=== PATIENT | male | born 1975 | race Caucasian/White ===

== ENCOUNTER → 2017-05-28 | Outpatient (CLI) | payer OTHER | END | disposition home or self-care (01) | LOC: US 05-20 14:00 | DX: D17.79 Benign lipomatous neoplasm of other sites (principal); R22.31 Localized swelling, mass and lump, right upper limb ==

== ENCOUNTER → 2017-07-05 | Day surgery (SDC) | payer OTHER ==
[~2017-07-05] VITALS: Ht 190.5 cm; Wt 99.8 kg
[~2017-07-05] MED LIST: PROZAC10 MG PO; SINGULAIR10 M1 PO; SYNTHROID,LEV125 MCG PO; TRAMADOL HCL50 MG PO; ZYRTEC10 MG PO
[2017-07-05 09:55] VITALS: BP 106/65
[2017-07-05 10:45] VITALS: BP 104/62
[2017-07-05 11:00] VITALS: BP 106/59
[2017-07-05 11:15] VITALS: BP 102/60
== END | disposition home or self-care (01) ==
LOC: SDC 07-02 14:00 → LAB 09:00 → SDC 09:00 → LAB 09:30 → SDC 14:00 → LAB 14:00
DX: D18.01 Hemangioma of skin and subcutaneous tissue (principal); F32.9 Major depressive disorder, single episode, unspecified; Z79.899 Other long term (current) drug therapy; E07.89 Other specified disorders of thyroid

== ENCOUNTER → 2018-01-21 | Outpatient (CLI) | payer OTHER ==
[2018-01-21 09:54] LABS: VITAMIN D, 25-HYDROXY 32.3 ng/mL (30-100)
[2018-01-21 10:29] LABS: FREE T4 0.96 ng/dl (0.76-1.46); THYROID STIM HORMONE (HS) 3.75 uIU/ml (0.358-4.75)
[2018-01-22 10:08] LABS: LUTEINIZING HORMONE 004283 3.4 mIU/mL (1.7-8.6); PROLACTIN 004465 9.7 ng/mL (4.0-15.2)
== END | disposition home or self-care (01) ==
LOC: LAB 08:19
PROVIDERS: Internal Medicine
DX: E03.9 Hypothyroidism, unspecified (principal); E29.1 Testicular hypofunction; E55.9 Vitamin D deficiency, unspecified; E34.9 Endocrine disorder, unspecified; N40.0 Benign prostatic hyperplasia without lower urinary tract symptoms